=== PATIENT | female | born 1955 | race Caucasian/White ===

== ENCOUNTER → 2016-07-13 | Outpatient (CLI) | payer OTHER ==
[~2016-07-13] MED LIST: CENTRUM SILVER1 EAC2 PO; CLARITIN10 MG PO; COLACE100 MG PO; CYCLOBENZAPRINE10 MG PO; FLEXERIL PO; HYDROCODONE-AP1 EAC6 PO; LISINOPRIL10 MG PO; MEDROLDOSEPACK PO; MUCINEX TA600 MG/TA2 PO; NORCO 10-325 T1 EACH PO; PRADAXA150 MG PO; PRILOSEC OTC20 MG PO; PROBIOTIC1 EAC1 PO; ULTRA-LIGHT RO1 EACH MC; VITAMINC500 PO
[2016-07-13 10:35] LABS: CREATININE 0.8 mg/dL (0.6-1.0)
== END ==
LOC: CAT 09:11
PROVIDERS: Internal Medicine Pulmonary Disease
DX: I26.99 Other pulmonary embolism without acute cor pulmonale (principal); I51.7 Cardiomegaly; M47.816 Spondylosis without myelopathy or radiculopathy, lumbar region; R07.9 Chest pain, unspecified; M54.5 Low back pain

== ENCOUNTER → 2016-10-24 | Outpatient (CLI) | payer OTHER ==
[2016-10-24 09:19] LABS: CREATININE 0.9 mg/dL (0.6-1.0)
== END ==
LOC: CAT 10-10 12:05
PROVIDERS: Internal Medicine Pulmonary Disease
DX: I26.99 Other pulmonary embolism without acute cor pulmonale (principal); I49.9 Cardiac arrhythmia, unspecified; K44.9 Diaphragmatic hernia without obstruction or gangrene